=== PATIENT | male | born 1965 | race Caucasian/White ===

== ENCOUNTER → 2019-10-03 13:56 | Outpatient (CLI) | payer BC, SELFPAY ==
[2019-10-03 15:46] LABS: Adenovirus Not Detected (Not Detect); Bordetella pertussis Not Detected (Not Detect); Chlamydophila pneumoniae Not Detected (Not Detect); Coronavirus 229E Not Detected (Not Detect); Coronavirus HKU1 Not Detected (Not Detect); Coronavirus NL 63 Not Detected (Not Detect); Coronavirus OC43 Not Detected (Not Detect); Human Metapneumovirus Not Detected (Not Detect); Human Rhinovirus/Enterovirus Not Detected (Not Detect); Influenza A Not Detected (Not Detect); Influenza B Not Detected (Not Detect); Mycoplasma pneumoniae Not Detected (Not Detect); Parainfluenza Virus 1 Not Detected (Not Detect); Parainfluenza Virus 2 Not Detected (Not Detect); Parainfluenza Virus 3 Not Detected (Not Detect); Parainfluenza Virus 4 Not Detected (Not Detect); Respiratory Syncytial Virus Not Detected (Not Detect)
== END ==
PROVIDERS: Visit Provider Nurse Practitioner
DX: R05 Cough (principal)
CPT/HCPCS: 87633

== ENCOUNTER → 2020-07-15 14:21 | Outpatient (CLI) | payer BC, SELFPAY ==
--- NOTE | 2020-07-15 14:23 | DI.RAD.S_ITS ---
PROCEDURE: XR HIP W PEL IF DONE LT 2V INDICATIONS: L hip pain post fall TECHNIQUE: 2 views of the hip were acquired. COMPARISON: None. FINDINGS: Bones: No fractures or dislocations. No suspicious bony lesions. The visualized pelvic ring appears intact. 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 Soft tissues: No suspicious soft tissue calcifications or masses. Suspect prior hernia repair with mesh. IMPRESSION: No fracture or dislocation. Dictated by: Garrett Barber M.D. on 07/15/2020 at 13:47 Approved by: Garrett Barber M.D. on 07/15/2020 at 13:49
== END ==
PROVIDERS: Referring Provider Nurse Practitioner; Visit Provider Nurse Practitioner
DX: M25.552 Pain in left hip (principal)
CPT/HCPCS: 73502